=== PATIENT | female | born 1995 | race Caucasian/White ===

== ENCOUNTER → 2024-07-04 | Day surgery (SDC) | payer OTHER ==
[~2024-07-04] MED LIST: DICYCLOMINE HCL10 MG PO; FENTANYL CITRATE/PF 100MCG/2 ML INJ ONE; LIDOCAINE HCL 2% LOCAL INJ 5 ML SDV VIAL INJ ONE; MIDAZOLAM HCL 2 MG/2 ML VIAL ONE; ONDANSETRON ODT4 MG PO; PRILOSEC OTC20 MG PO; PROPOFOL IV EMULSION 50 ML IV ONE; VENTOLIN HFA18 GM INH
[2024-07-04] MEDS: LACTATED RINGER'S 1,000 ML ONE (11:59)
[2024-07-04 14:26] VITALS: TEMP 97.6
[2024-07-04 14:50] VITALS: BP 121/71; PULSE 81; RESP 18; O2SAT 99
== END | disposition home or self-care (01) ==
LOC: OR 05:00
PROVIDERS: ATTEND Internal Medicine Gastroenterology
DX: K29.60 Other gastritis without bleeding (principal); K52.9 Noninfective gastroenteritis and colitis, unspecified; K31.89 Other diseases of stomach and duodenum; K22.70 Barrett's esophagus without dysplasia; K44.9 Diaphragmatic hernia without obstruction or gangrene; R19.8 Other specified symptoms and signs involving the digestive system and abdomen; K64.8 Other hemorrhoids; R74.01 Elevation of levels of liver transaminase levels; J45.909 Unspecified asthma, uncomplicated; F32.A Depression, unspecified; F17.210 Nicotine dependence, cigarettes, uncomplicated; Z88.0 Allergy status to penicillin; Z91.018 Allergy to other foods; Z79.899 Other long term (current) drug therapy; Z68.42 Body mass index [BMI] 45.0-49.9, adult
CPT/HCPCS: 43239; 45380; 81025; J2003; J2250; J2704; J3010; J7121; 45378